=== PATIENT | female | born 1940 | race Caucasian/White ===

== ENCOUNTER → 2023-12-31 16:57 | Outpatient (REF) | payer OTHER, SELFPAY ==
[2024-01-01 15:01] LABS: Urine Albumin 1+ (Neg - Trace); Urine Bilirubin Negative (Negative); Urine Character Clear (Clear); Urine Color Yellow; Urine Glucose Negative (Negative); Urine Ketone Negative (Negative); Urine Leukocyte Trace (Negative); Urine Nitrite Negative (Negative); Urine Occult Blood 4+ (Negative); Urine Urobilinogen Negative (Neg - 1+)
[2024-01-01 15:41] LABS: Urine Red Blood Cell >100 /HPF (0-2)
[2024-01-01 15:43] LABS: Urine Bacteria Few (Negative)
== END ==
LOC: OLABPV 16:57
PROVIDERS: ATTENDING PHYSICIAN Internal Medicine
DX: R31.9 Hematuria, unspecified (principal)
CPT/HCPCS: 81003; 81015; 87077; 87086; 87186

== ENCOUNTER → 2024-01-30 15:30 | Outpatient (REF) | payer OTHER, SELFPAY | LOC: RAD 15:30 | PROVIDERS: ATTENDING PHYSICIAN Nurse Practitioner Family; FAMILY PHYSICIAN Internal Medicine Geriatric Medicine | DX: M25.562 Pain in left knee (principal) | CPT/HCPCS: 73564 ==

== ENCOUNTER → 2024-03-01 16:35 | Outpatient (REF) | payer OTHER, SELFPAY | LOC: MRI 16:35 | PROVIDERS: ATTENDING PHYSICIAN Internal Medicine Geriatric Medicine | DX: M25.562 Pain in left knee (principal); R60.0 Localized edema | CPT/HCPCS: 73718 ==

== ENCOUNTER → 2024-03-25 12:30 | Outpatient (REF) | payer OTHER, SELFPAY | LOC: PAVMRI 12:30 | PROVIDERS: ATTENDING PHYSICIAN Internal Medicine Geriatric Medicine | DX: M25.562 Pain in left knee (principal); R60.0 Localized edema | CPT/HCPCS: 73721 ==

== ENCOUNTER → 2024-05-21 10:51 | Outpatient (REF) | payer OTHER, SELFPAY | LOC: RAD 10:51 | PROVIDERS: ATTENDING PHYSICIAN Internal Medicine Geriatric Medicine | DX: M81.0 Age-related osteoporosis without current pathological fracture (principal); E78.2 Mixed hyperlipidemia; I10 Essential (primary) hypertension; E03.9 Hypothyroidism, unspecified; R53.1 Weakness; C53.9 Malignant neoplasm of cervix uteri, unspecified; I70.0 Atherosclerosis of aorta; E55.9 Vitamin D deficiency, unspecified; Z91.81 History of falling | CPT/HCPCS: 77080 ==

== ENCOUNTER 2024-09-03 14:33 | Emergency (ER) | payer OTHER, SELFPAY ==
[2024-09-03 14:36] VITALS: BP 172/84
[2024-09-03 14:46] VITALS: BMI 23.1
--- NOTE | 2024-09-03 15:51 | ED.GENMED ---
History of Present Illness
General
Chief Complaint: Abdominal Symptoms
Source: patient
Exam Limitations: none
Time Seen by Provider: 09/03/24 15:46
Nursing documentation reviewed up to this point in time: agreed with
History of Present Illness
History of Present Illness:
Patient is a 84-year-old female with past medical history of cervical cancer hysterectomy radiation neuropathy adhesions and bowel obs ( 2006) presents to the ER complaining of nausea and abdominal pain. She started with abdominal pain and
vomiting September 01 2 days ago. She did not vomit yesterday however pain persisted and she is still nauseous. She reports she does have a history of constipation and did take Colace on September 01 and did move her bowels. She denies any fever
chills.
Past History
Past History
ED Past Medical History: Other (neuropathy, hysterectomy for uterine cancer with radiation in 1984. Lysis of adhesions for small bowel structure in 2006. Hypertension, peripheral neuropathy)
ED Past Surgical History: Gynecological, Orthopedic and Tonsilectomy
Social History
Tobacco: Non-smoker
Alcohol: None
Drug: None
Personal: Single
Living: alone
Employment: Other
Family History
Family History: Other
Review of Systems
Review of Systems
Allergies reviewed?: Yes
All Other Systems: ROS reviewed and negative except as documented in HPI and ROS
Constitutional: Reports no symptoms; Denies fever
ABD/GI: Reports abdominal pain, nausea and constipated (constipated 2 nights ago but did move bowel ); Denies vomiting or diarrhea
: Reports no symptoms
Musculoskeletal: Reports no symptoms
Skin: Reports no symptoms
Neurological: Reports no symptoms
Hematologic/Lymphatic: Reports no symptoms
Psychiatric: Reports no symptoms
Phy Exam
General Physical Exam
General Presentation: well appearing
General age: appears stated age
General Skin: warm and dry
General Habitus: normal
General Mental: alert
General Hydration: appears well hydrated
Gastrointestinal Exam
Gastrointestinal Exam: soft and other (mild non specific tenderness no guarding )
Neurological Exam
Neurological Exam: alert and oriented x3
Musculoskeletal Exam
Musculoskeletal Exam: full ROM
Skin Exam
Skin Exam: normal color and warm/dry
Psychiatric Exam
Psychiatric Exam: normal mood/affect
Course
Orders/Labs/Results
Orders:
Orders
09/03/24 15:52
Complete Blood Count/With Diff Urgent
Comprehensive Metabolic Panel Urgent
09/03/24 16:07
Ondansetron Injectable [Zofran] 4 mg IV NOW STA
09/03/24 16:08
0.9% Sodium Chloride 1000 ml [Nss] 1,000 ml IV BOLUS
Iohexol [Omnipaque] See Protocol PO NOW STA
09/03/24 16:09
CT Abd/pel W Iv And Oral Contr Urgent
Comment:
Reason For Exam: abd pain nausea hx of bowel obs
Abnormal Lab Results
09/03/24
15:52
MCH 32.3 H pg
(27.0-31.0)
Absolute Neuts (auto) 7.8 H 10^3/uL
(1.4-6.5)
Absolute Lymphs (auto) 1.1 L 10^3/uL
(1.2-3.4)
Neutrophils % 81.8 H %
(42.2-75.2)
Lymphocytes % 11.9 L %
(20.5-51.1)
Sodium 134 L mmol/L
(135-145)
Glucose 110 H mg/dl
(70-99)
09/03/24 15:52
09/03/24 15:52
Vital Signs
Initial and Last Documented VS:
Initial Vital Signs
Temp Pulse Resp BP Pulse Ox
98.2 F 76 18 172/84 98
09/03/24 14:36 09/03/24 14:36 09/03/24 14:36 09/03/24 14:36 09/03/24 14:36
Last Documented Vital Signs
Temp Pulse Resp BP Pulse Ox
98.2 F 84 20 146/86 98
09/03/24 14:36 09/03/24 18:30 09/03/24 18:30 09/03/24 18:30 09/03/24 18:30
Conference Producer consulted with Physician
Conference Producer consulted with physician?: Yes
Name of Physician Consulted: Jus
MDM/Problems Addressed
Differential Diagnosis Includes:
not limited to bowel obs diverticuitis
MDM/Problems Addressed:
Patient is an 84-year-old female who presented with nausea and had vomiting several days ago no vomiting today presented to the ER for evaluation. She does have history of obstruction and was concerned about this related to recent constipation.
Patient presents awake alert no acute distress very mild nonspecific tenderness. She was given 1 dose of Zofran here and tolerated oral contrast well. She denies any fevers and is afebrile and has normal kidney function normal electrolytes. no uti
s/s. afebrile
She has not had any vomiting here in the ER has not needed anything for abdominal discomfort.
CAT scan shows mild wall thickening of the long segment the distal ileum in the right lower quadrant nonspecific represent a mild infectious or inflammatory enteritis will DC with clear liquids for the next 24 hours follow bland solid foods and
close outpatient follow-up by family doctor. Will send a prescription for Zofran to patient's pharmacy
Chronic conditions affecting care:
hx of SBO in past
*Radiology
Radiology exam reviewed: radiology read reviewed
*Pulse Oximetry
Patient hypoxic: no
*Critical Care Note
Total Time (30-74mins, 75-104mins- exclusive of procedures): Not Applicable
ED Attending Note
-
Portions of this chart may have been created with voice recognition software.� Occasional wrong word or��sound alike� substitutions may have occurred due to the inherent limitations of voice recognition software.
Discharge Plan
Departure
Patient Disposition: Home (Routine Discharge)
Date of Disposition: 09/03/24
Time of Disposition: 19:57
Patient with high blood pressure during this ER visit?: Yes
Covid-19: Not Applicable
Discharge Problem:
Enteritis
Instructions: Clear Liquid Diet, [place] Diet, BLOOD PRESSURE
Prescriptions:
New
ondansetron 4 mg tablet,disintegrating
4 mg PO Q8H PRN (Reason: nausea and vomiting) Qty: 10 0RF
No Action
levothyroxine 50 MCG tablet
50 mcg PO DAILY
nitroglycerin 0.4 mg tablet, sublingual
0.4 mg sublingual Q5MX3 PRN (Reason: chest pain)
atenolol 50 mg tablet
50 mg PO DAILY
spironolactone 50 mg tablet
50 mg PO BID
Patient Comments:
patient states she did not start medicatiion yet
cholecalciferol (vitamin D3) [Vitamin D3] 50 mcg (2,000 unit) Tablet
50 mcg PO DAILY
Saccharomyces boulardii 250 mg Capsule
250 mg PO BID
aspirin 325 mg Tablet
325 mg PO DAILY Qty: 30 0RF
docusate sodium 100 mg Capsule
100 mg PO BID Qty: 60 0RF
acetaminophen 325 mg Tablet
650 mg PO Q4HWA Qty: 30 0RF
oxycodone 5 mg Tablet
5 mg PO Q4HPRN PRN (Reason: mild pain) Qty: 14 0RF
Referrals:
Shivam Christine MD [Family Provider] -
Activity Restrictions/Additional Instructions:
As discussed your CAT scan was negative for bowel obstruction. Your CAT scan shows mild wall thickening of your small intestine could represent mild infectious or inflammatory enteritis. Clear fluids for the next 24 hours followed by bland solid
foods as tolerated. Closely follow-up with your family doctor next week for reevaluation of symptoms return if any worsening of symptoms. Also as needed a prescription for nausea medicine, Zofran was sent to pharmacy.
Interventions
Interventions:
*Risk Screen - Suicide Last Done: 09/03/24 14:49
*General Assessment Last Done: 09/03/24 14:49
*Neglect/Abuse Screening Last Done: 09/03/24 14:49
ED- Fall Risk Assessment Last Done: 09/03/24 14:52
*ED COVID-19 Vaccine History Last Done: 09/03/24 14:49
WP-Vpnkan-Iftnhxdzwr Assessment Last Done: 09/03/24 14:52
Discharge Date and Time
Print Language: TURKISH
[2024-09-03 16:06] LABS: % Basophils 0.3 % (0-2); % Eosinophils 0.2 % (0-6); % Immature Granulocytes 0.2 % (0-0.5); % Lymphocytes 11.9 % (20.5-51.1); % Monocytes 5.6 % (1.7-9.3); % Neutrophils 81.8 % (42.2-75.2); Absolute Lymphocytes 1.1 10^3/uL (1.2-3.4); Absolute Monocytes 0.5 10^3/uL (0.1-0.6); Absolute Neutrophils 7.8 10^3/uL (1.4-6.5); Hematocrit 41.8 % (37.0-47.0); Hemoglobin 15.1 g/dL (12.0-16.0); Mean Corp Hgb Conc. 36.1 g/dL (33.0-37.0); Mean Corpuscular Hgb 32.3 pg (27.0-31.0); Mean Corpuscular Volume 89.3 fL (81.0-99.0); Mean Platelet Volume 10.2 fL (7.4-10.4); Nucleated Red Blood Cells % 0 %; Platelet Count 235 10^3/uL (130-400); Red Blood Cell Count 4.68 10^6/uL (4.20-5.40); Red Cell Dist. Width 12.8 % (11.5-14.5); White Blood Cell Count 9.5 10^3/uL (4.8-10.8)
[2024-09-03 16:25] LABS: ALT (SGPT) 17 U/L (0-35); AST (SGOT) 23 U/L (14-36); Albumin 4.5 g/dl (3.5-5.0); Alkaline Phosphatase 53 U/L (38-126); Blood Urea Nitrogen 14 mg/dl (7-17); Calcium 9.6 mg/dl (8.4-10.2); Carbon Dioxide 22 mmol/L (22-30); Chloride 98 mmol/L (98-107); Estimated Creatinine Clearance 62 ml/min; Glucose 110 mg/dl (70-99); Potassium 4.2 mmol/L (3.5-5.1); Sodium 134 mmol/L (135-145); Total Protein 7.4 g/dl (6.3-8.2); eGFR > 60.00
[2024-09-03] MEDS: ZOFRAN 4 MG IV (16:33)
[2024-09-03] MEDS: NSS 1000 IV (16:33)
[2024-09-03] MEDS: OMNIPAQUE 50 ML PO (16:33)
[2024-09-03 18:30] VITALS: BP 146/86
== END 2024-09-04 00:50 | disposition home or self-care (01) ==
LOC: EMR 14:33
PROVIDERS: Emergency Medicine; EMERGENCY PHYSICIAN Emergency Medicine; FAMILY PHYSICIAN Internal Medicine Geriatric Medicine
DX: K52.9 Noninfective gastroenteritis and colitis, unspecified (principal); I10 Essential (primary) hypertension
CPT/HCPCS: 99285; 96374; 96361; 74177; 80053; 85025; Q9967